=== PATIENT | male | born 1995 | race African-American/Black ===

== ENCOUNTER 2018-04-05 02:45 | Inpatient (IN) | payer OTHER, MEDICAID ==
[~2018-04-05] VITALS: Ht 165.1 cm; Wt 65.3 kg
[2018-04-05] MEDS ORDERED: SODIUM CHLORIDE 0.9% 1,000 ML IV ONE (03:00)
[2018-04-05] MEDS ORDERED: LIDOCAINE HCL/PF 1% 10 MG/ML 5ML VIAL IJ ONE (03:45)
[2018-04-05] MEDS ORDERED: LIDOCAINE 1%/EPI 1:100,000 10 ML VIAL IJ ONE (03:45)
[2018-04-05] MEDS ORDERED: TETANUS, DIPHTHERIA, PERTUSSIS VAC/PF 0.5ML (>7YR OLD) IM ONE (03:45)
[2018-04-05 04:19] LABS: BASOPHILS % 0.2 % (0.0-2.0); EOSINOPHILS % 0.8 % (0.0-5.0); HEMATOCRIT. 46.7 % (42.0-52.0); HEMOGLOBIN. 15.7 g/dL (14.0-18.0); LYMPHOCYTES % 14.1 % (20.0-50.0); MEAN CORPUSCULAR HEMOGLOBIN 31.1 pg (28.0-32.0); MEAN CORPUSCULAR VOLUME 92.1 fL (80.0-94.0); MEAN PLATELET VOLUME 8.3 fl (7.4-10.4); NEUTROPHILS % 77.9 % (40.0-76.0); PLATELET 263 x1000/uL (130-400); RED BLOOD CELL COUNT 5.07 mill/uL (4.7-6.1); RED CELL DISTRIBUTION WIDTH 13.5 % (11.6-14.6)
[2018-04-05 04:25] LABS: INR 1.2
[2018-04-05 04:27] LABS: CHLORIDE 103 mEq/L (98-107); ETHANOL BLOOD 139 mg/dL
[2018-04-05] MEDS ORDERED: POTASSIUM CHLORIDE 20MEQ TABLET SR PO ONE (04:45)
[2018-04-05] MEDS ORDERED: KCL 10MEQ/50ML PREMIX 50 ML IV ONE (04:45)
[2018-04-05] MEDS ORDERED: CEFAZOLIN 1000MG PREMIX 50 ML IV ONE (04:45)
[2018-04-05] MEDS ORDERED: BACITRACIN ZINC OINT UDPKT TOP ONE (05:00)
[2018-04-05] MEDS: SODIUM CHLORIDE 0.9% 1,000 ML IV SCH ×3 (06:03→23:16)
[2018-04-05] MEDS ORDERED: ACETAMINOPHEN 325MG TABLET PO PRN (06:15)
[2018-04-05] MEDS ORDERED: POTASSIUM CHLORIDE 20MEQ TABLET SR PO SCH (06:15)
[2018-04-05] MEDS ORDERED: CLONIDINE 0.1MG TABLET PO PRN (06:15)
[2018-04-05] MEDS ORDERED: ONDANSETRON HCL 4MG/2ML INJ IV PRN (06:15)
[2018-04-05] MEDS ORDERED: MAGNESIUM/ALUMINUM HYDROXIDE/SIMETHICONE 30ML UDC PO PRN (06:15)
[2018-04-05] MEDS ORDERED: LORAZEPAM 2MG/ML CPJ IV PRN (06:15)
[2018-04-05] MEDS: CEFAZOLIN 500 MG in DEXTROSE 5% WATER 50 ML IV SCH ×3 (06:15→23:17)
[2018-04-05] MEDS ORDERED: MAGNESIUM 2 G PREMIX 50 ML IV ONE (06:15)
[2018-04-05] MEDS: MVI, ADULT NO.1 10 ML, FOLIC ACID 1 MG, THIAMINE HCL 100 MG in SODIUM CHLORIDE 0.9% 1,0... IV SCH ×8 (06:15→10:54)
[2018-04-05 07:53] LABS: *AMPHETAMINES SCREEN URINE NEGATIVE (NEGATIVE); *BARBITURATES SCREEN URINE NEGATIVE (NEGATIVE); *BENZODIAZEPINES SCREEN URINE NEGATIVE (NEGATIVE); *COCAINE SCREEN URINE NEGATIVE (NEGATIVE); METHADONE URINE SCREEN NEGATIVE (NEGATIVE)
[2018-04-05 07:57] LABS: CANNABINOID URINE SCREEN PRESUMTIVE POSITIVE (NEGATIVE); OPIATES URINE SCREEN NEGATIVE (NEGATIVE); PHENCYCLIDINE URINE SCREEN NEGATIVE (NEGATIVE)
[2018-04-05] MEDS ORDERED: CEFAZOLIN 500 MG in DEXTROSE 5% WATER 50 ML IV SCH (15:00)
[2018-04-05 19:19] LABS: CHLORIDE 108 mEq/L (98-107)
[2018-04-05 21:50] VITALS: BP 112/67
[2018-04-05] MEDS ORDERED: MAGNESIUM 2 G PREMIX 50 ML IV PRN (22:00)
[2018-04-05 22:22] VITALS: BP 112/67
[2018-04-06] VITALS: BP 102/54
[2018-04-06 04:00] VITALS: BP_SYST 104; BP_SYST 108; BP_DIAS 61; BP_DIAS 64
[2018-04-06 06:32] LABS: BASOPHILS % 0.3 % (0.0-2.0); EOSINOPHILS % 2.5 % (0.0-5.0); HEMATOCRIT. 42.4 % (42.0-52.0); HEMOGLOBIN. 14.6 g/dL (14.0-18.0); LYMPHOCYTES % 28.9 % (20.0-50.0); MEAN CORPUSCULAR HEMOGLOBIN 31.7 pg (28.0-32.0); MEAN PLATELET VOLUME 8.3 fl (7.4-10.4); MONOCYTES % 9.9 % (2.0-8.0); NEUTROPHILS % 58.4 % (40.0-76.0); PLATELET 222 x1000/uL (130-400); RED BLOOD CELL COUNT 4.61 mill/uL (4.7-6.1); RED CELL DISTRIBUTION WIDTH 13.4 % (11.6-14.6)
[2018-04-06] MEDS: CEFAZOLIN 500 MG in DEXTROSE 5% WATER 50 ML IV SCH (06:34)
[2018-04-06 07:40] LABS: CHLORIDE 106 mEq/L (98-107)
[2018-04-06 07:48] LABS: PHOSPHORUS 2.9 mg/dL (2.5-4.9)
[2018-04-06 08:00] VITALS: BP 95/55
[2018-04-06] MEDS ORDERED: ACETAMINOPHEN WITH CODEINE 300/30MG TABLET PO PRN (09:30)
[2018-04-06 12:00] VITALS: BP 97/53
[2018-04-06] MEDS: SODIUM CHLORIDE 0.9% 1,000 ML IV SCH (12:43)
[2018-04-06 14:00] VITALS: BP 98/58
[2018-04-06] MEDS ORDERED: CEFAZOLIN 1000MG PREMIX 50 ML IV SCH (14:00)
[2018-04-06 14:45] VITALS: BP 98/58
== END 2018-04-06 15:32 | disposition home or self-care (01) | DRG 384 ==
LOC: ER 02:45 → 5WST 05:10 → ENRESERV 18:57
PROVIDERS: ADMIT Internal Medicine; ATTEND Internal Medicine
PROC: 0HQ0XZZ Repair Scalp Skin, External Approach (ICD-10-PCS; principal; 2018-04-05)
PROC: 0HQGXZZ Repair Left Hand Skin, External Approach (ICD-10-PCS; 2018-04-05)
DX: S01.01XA Laceration without foreign body of scalp, initial encounter (principal); D72.829 Elevated white blood cell count, unspecified; E87.6 Hypokalemia; S61.215A Laceration without foreign body of left ring finger without damage to nail, initial encounter; F10.129 Alcohol abuse with intoxication, unspecified; F12.10 Cannabis abuse, uncomplicated; W19.XXXA Unspecified fall, initial encounter; Y93.01 Activity, walking, marching and hiking; Y92.89 Other specified places as the place of occurrence of the external cause; Y99.8 Other external cause status
CPT/HCPCS: 12002; 36415; 73080; 73130; 80048; 80305; 83735; 84100; 90715; 93970; 96361; 96365; 96366; 96375; 99291; G0482; J0690; J3411; J3480; J3490; J7030; J7060

== ENCOUNTER 2018-04-16 22:19 | Emergency (ER) | payer MEDICAID ==
[~2018-04-16] VITALS: Ht 165.1 cm; Wt 66.0 kg
[2018-04-17 01:33] VITALS: BP 120/62
[2018-04-17] MEDS ORDERED: IBUPROFEN 600MG TABLET PO ONE (01:45)
== END 2018-04-17 01:33 | disposition home or self-care (01) ==
LOC: ER 22:19
DX: Z48.02 Encounter for removal of sutures (principal); F12.10 Cannabis abuse, uncomplicated
CPT/HCPCS: 99281

== ENCOUNTER 2022-04-17 13:27 | Emergency (ER) | payer MEDICAID ==
[~2022-04-17] VITALS: Ht 170.2 cm; Wt 68.0 kg
[2022-04-17 13:29] VITALS: BP 133/62
[2022-04-17] MEDS ORDERED: ACETAMINOPHEN 325MG TABLET PO ONE (14:30)
[2022-04-17] MEDS ORDERED: IBUPROFEN 400MG TABLET PO ONE (14:30)
[2022-04-17] MEDS ORDERED: IBUP-2028 MT (15:17)
[2022-04-17] MEDS ORDERED: TOPUD PO (15:17)
== END 2022-04-17 15:49 | disposition home or self-care (01) ==
LOC: ER 13:27
DX: S63.681A Other sprain of right thumb, initial encounter (principal); W22.8XXA Striking against or struck by other objects, initial encounter; Y93.89 Activity, other specified; Y92.89 Other specified places as the place of occurrence of the external cause; Y99.0 Civilian activity done for income or pay
CPT/HCPCS: 73130; 99283